=== PATIENT | female | born 1960 | race Caucasian/White ===

== ENCOUNTER 2016-12-21 19:13 | Emergency (ER) | payer OTHER ==
[~2016-12-21] VITALS: Ht 157.5 cm; Wt 72.6 kg
[2016-12-21 19:25] VITALS: BP 119/60
--- NOTE | 2016-12-21 19:53 | NUR ---
PT RETURN FROM XRAY TO LOBBY
--- NOTE | 2016-12-21 19:56 | NUR ---
PT TAKEN TO BED 3
--- NOTE | 2016-12-21 20:00 | NUR ---
CAME IN DUE TO COUGH FOR 2-3 WEEKS WITH PHLEGM. HISTORY TAKEN FROM THE PATIENT. AWAKE, ALERT, ORIENTED. DENIES DIARRHEA. WITH PREVIOUS EPISODES OF NAUSEA AND VOMITING. DENIES ANY MEDICAL HISTORY AND DRUG ALLERGIES.
--- NOTE | 2016-12-21 20:12 | NUR ---
Dr. Banuelos evaluating patient at bedside.
[2016-12-21] MEDS ORDERED: predniSONE 20 MG TAB PO ONE (20:20)
[2016-12-21 21:00] VITALS: BP 118/64
--- NOTE | 2016-12-21 21:00 | NUR ---
Patient discharged with v/s stable. Written and verbal after care instructions given and explained. Patient verbalized understanding. Ambulatory with steady gait. All questions addressed prior to discharge. Advised to follow up with PMD. DISCHARGED PER DR. ESPARZA WITH RX PREDNISONE.
== END 2016-12-21 21:00 | disposition home or self-care (01) ==
LOC: MED 19:13
DX: J20.9 Acute bronchitis, unspecified (principal); Z88.6 Allergy status to analgesic agent
CPT/HCPCS: 71010; 93005; 99284; J7512

== ENCOUNTER 2021-08-02 09:55 | Day surgery (SDC) | payer OTHER, SELFPAY ==
[2021-08-02] MEDS ORDERED: MIDAZOLAM 2 MG/2 ML VIAL ONE (11:18)
[2021-08-02] MEDS ORDERED: PROPOFOL 200 MG/20 ML VIAL IV ONE (11:18)
[2021-08-02] MEDS ORDERED: fentaNYL citrate 0.05 MG/ML VIAL ONE (11:18)
[2021-08-02] MEDS ORDERED: SUCCINYLCHOLINE CHLORIDE 200 MG/10 ML VIAL IVP ONE (11:18)
[2021-08-02] MEDS ORDERED: BUPIVACAINE-MPF/EPI 0.25% 30 ML VIAL INJ ONE (11:46)
[2021-08-02] MEDS ORDERED: LIDOCAINE 1% 500 MG/50 ML VIAL ONE (11:46)
[2021-08-02] MEDS ORDERED: HYDROGEN PEROXIDE 3% 240 ML BTL TP ONE (12:04)
[2021-08-02] MEDS ORDERED: SEVOFLURANE 250 ML BTL INH ONE ×2 (12:05)
[2021-08-02] MEDS ORDERED: ONDANSETRON 4 MG/2 ML VIAL ONE (12:19)
[2021-08-02] MEDS ORDERED: DEXAMETHASONE 4 MG/ML VIAL ONE ×2 (12:20)
[2021-08-02] MEDS ORDERED: MEPERIDINE 25 MG/ML SYR IVP PRN (12:30)
[2021-08-02] MEDS ORDERED: diphenhydrAMINE 50 MG/ML VIAL IVP PRN (12:30)
[2021-08-02] MEDS ORDERED: ONDANSETRON 4 MG/2 ML VIAL IVP PRN (12:30)
[2021-08-02] MEDS ORDERED: HYDROmorphone 1 MG/ML AMP IVP PRN (12:30)
[2021-08-02] MEDS ORDERED: LACTATED RINGERS 1,000 ML IV SCH (12:30)
== END 2021-08-02 14:45 | disposition home or self-care (01) ==
LOC: MDS 09:55 → MMU 09:56 → MDS 14:45
PROVIDERS: ATTEND Surgery
DX: K60.3 Anal fistula (principal); E11.9 Type 2 diabetes mellitus without complications; E78.5 Hyperlipidemia, unspecified; E66.9 Obesity, unspecified; Z68.30 Body mass index [BMI] 30.0-30.9, adult; Z79.899 Other long term (current) drug therapy; Z20.822 Contact with and (suspected) exposure to COVID-19
CPT/HCPCS: 46020; 71045; 87426; J1100; J2001; J2250; J2405; J2704; J3010; J3490; J7030; J0330